=== PATIENT | female | born 1985 | race Two or more races ===

== ENCOUNTER 2018-07-07 23:04 | Inpatient (IN) | payer OTHER ==
[~2018-07-07] VITALS: Ht 170.2 cm; Wt 96.0 kg
--- NOTE | ~2018-07-07 | OR ---
[facility] [address], [place] [address] Draft DATE OF OPERATION: 07/08/2018 SURGEON: Raven Millre DO PREOPERATIVE DIAGNOSES: 1. Term intrauterine . 2. Arrest of descent. POSTOPERATIVE DIAGNOSES: 1. Term intrauterine . 2. Arrest of descent. COUNCILLOR [employer] COUNCIL: Aimee Velazco MD ANESTHESIA: Epidural. ESTIMATED BLOOD LOSS: 500 mL. COMPLICATIONS: None. SPECIMEN: None. FINDINGS: Delivery of viable male , weighing 8 pounds 1 ounces, in the direct OA position with Apgars of 9 and 9 at one and five minutes respectively. Normal tubes, ovaries, and uterus. INDICATIONS: Ms. Lam is a pleasant 32-year-old, G1, P0, white female, who presented to Labor and Delivery for labor. Her labor progressed without complication until 10 cm. The patient then pushed for approximately 2.5 hours. There was some concern that the baby was direct OP positioning, however, baby tolerated pushing well with reassuring heart tracing. The vertex made little to no descensus after 2.5 hours and decision was made to proceed with primary low transverse delivery. Risks, benefits, and alternatives were discussed in detail with the patient. The patient understands and PATIENT NAME: WERO LAM OPERATIVE REPORT DATE OF : 85 REPORT #: [id number] PHYSICIAN: RAVEN MILLER DO PCP: RAVEN MILLER DO REPORT IS CONFIDENTIAL AND NOT TO BE RELEASED WITHOUT AUTHORIZATION [facility] [address], [place] [address] Draft wishes to proceed with the procedure. TECHNIQUE: The patient was taken to the operating room where a time-out was performed to confirm correct patient and correct procedure. Epidural had been in place and this was bolused and was adequate for anesthesia. The patient was prepped and draped in the supine position with a bump in her right hip. ICPs were on and running and patient received Ancef 2 g preoperatively per skip protocol. A vaginal and abdominal prep was performed. Epidural was tested for adequate anesthesia and this was confirmed. A Pfannenstiel skin incision was made through the skin and carried down through the subcu into the fascia. The fascia was nicked in the midline and fascial incision was extended bilaterally using curved Garza scissors. Fascia was grasped with Larry's, elevated, and the underlying rectus muscle dissected off bluntly and sharply. The rectus muscles were divided in the midline and the peritoneum was then entered sharply and peritoneal incision was extended cephalad caudad using blunt dissection. Surgeon's hand was placed into the maternal abdomen. Normal uterus, abdomen, and pelvis were palpated. An Basilio self retractor was placed and lower uterine segment identified. Hysterotomy was performed in lower uterine segment and clear amniotic fluid was noted. The hysterotomy was extended bilaterally using blunt dissection and the head was elevated in the abdomen, delivered with the assistance of fundal pressure. The was noted to be in the direct OA position. No nuchal cord was identified and the delivered easily. The was vigorous and cried at delivery. The cord was doubly clamped and cut and the handed to the waiting pediatric team for further care. Cord blood was obtained for routine analysis and section of cord was retained. Placenta was then expressed intact with a centrally inserted three-vessel cord. The uterus was cleared of any remaining products of conception or clot and good uterine tone was noted. Hysterotomy was repaired using 0 Vicryl in a running locked manner with 0 Vicryl suture. A second vertical imbricating stitch of 0 Vicryl was applied with good hemostasis appreciated. The pelvis was irrigated and again found to be hemostatic. The Basilio retractor was removed and the lower uterine segment again identified and found to be hemostatic. The adnexa were examined. The patient had normal uterus and tubes bilaterally. ACell sheet was applied to the lower uterine segment over the hysterotomy. Peritoneum was then reapproximated using 2-0 Vicryl in a running nonlocked manner. Rectus muscles were examined and found to be hemostatic and these were loosely reapproximated using 0 Vicryl in three interrupted sutures of 0 Vicryl. ACell powder was applied to the rectus sheath. Fascia was then reapproximated using 0 Vicryl in a running nonlocked manner. Subcu was evaluated and found to be hemostatic after irrigation. Subcu was then reapproximated using 2-0 Vicryl in a running nonlocked manner and skin was reapproximated using surgical chanel. The uterus was Crede'd for scant amount of blood and the patient was taken to PACU in good and stable condition with her . PATIENT NAME: WERO LAM OPERATIVE REPORT DATE OF : 85 REPORT #: [id number] PHYSICIAN: RAVEN MILLER DO PCP: RAVEN MILLER DO REPORT IS CONFIDENTIAL AND NOT TO BE RELEASED WITHOUT AUTHORIZATION [address] [address] Draft Sponge, needle, and instrument counts were correct x2 at the end of the procedure. Dr. Velazco was present, participated in all portions of the procedure. Raven Miller DO JDW/MODL /[id number] Copies: ~ PATIENT NAME: WERO LAM OPERATIVE REPORT DATE OF : 85 REPORT #: [id number] PHYSICIAN: RAVEN MILLER DO PCP: RAVEN MILLER DO REPORT IS CONFIDENTIAL AND NOT TO BE RELEASED WITHOUT AUTHORIZATION
--- NOTE | 2018-07-08 07:07 | PR ---
[facility] [address] [place], [place] [address] Signed Progress Notes IP Datetime Report Generated by CPMirna: 07/08/2018 07:07 PROGRESS NOTES: [id number] Impression: Normal progression of labor; Reassuring heart rate Procedures: Artificial ROM; Sterile Vag Exam Plan: Anticipate Vaginal Delivery Informed Consent Obtain: Vaginal Delivery Other Informed Consents: AROM VITAL SIGNS: [id number] Vital Signs: Reviewed; Within Normal Limits EXAM: [id number] Dilatation: 8.5 Effacement: 100 Station: -1 Uterine Contractions: q2-3 m MEMBRANES: [id number] Membrane Status: Intact ROM Note: Discussed AROM w/ pt including risks/benefits. vertex well applied to cervix. After obtaining verbal consent, AROM performed without difficulty for small amount of clear fluid. Mother and fetus tolerated well. Comments: Pt seen and examined. Doing well. Had been very comfortable w/ epidural, but beginning to become quite uncomfortable. Membranes still intact and pt 8.5cm and completely effaced. Discussed AROM and pt agrees; AROM performed without difficulty as above. Will have anesthesia evaluate for possible re-bolus. Reviewed anticipated course of remainder or labor. All questions answered Fetus A: [id number] FHR Baseline: 130 Variability: Moderate 6-25bpm Accelerations: 15X15 Decelerations: None FHR Category: Category I Presentation: Vertex Other Presentation: GLADYS Comments on Fetus A: No evidence of metabolic acidosis Fetus B: [id number] Signing Physician: Raven Miller DO Copies: *Electronically Signed* 07/08/18706 RAVEN MILLER DO PATIENT NAME: WERO LAM PROGRESS NOTE DATE OF : 85 PHYSICIAN: RAVEN MILLER DO RPT #: [id number] REPORT IS CONFIDENTIAL AND NOT TO BE RELEASED WITHOUT AUTHORIZATION [facility] [address] [place] [address] Signed ~ *Electronically Signed* 07/08/18706 RAVEN MILLER DO PATIENT NAME: WERO LAM PROGRESS NOTE DATE OF : 85 PHYSICIAN: RAVEN MILLER DO RPT #: [id number] REPORT IS CONFIDENTIAL AND NOT TO BE RELEASED WITHOUT AUTHORIZATION
--- NOTE | 2018-07-08 09:24 | PR ---
[facility] [address] [place], [place] [address] Signed Progress Notes IP Datetime Report Generated by CPMirna: 07/08/2018 09:24 PROGRESS NOTES: [id number] Impression: Normal progression of labor; Reassuring heart rate Procedures: Artificial ROM; Sterile Vag Exam Plan: Continue present management; Anticipate Vaginal Delivery Informed Consent Obtain: Vaginal Delivery Other Informed Consents: AROM VITAL SIGNS: [id number] Vital Signs: Reviewed; Within Normal Limits EXAM: [id number] Dilatation: 10.0 Effacement: 100 Station: 0 Uterine Contractions: Q 2-3 m MEMBRANES: [id number] Membrane Status: Intact ROM Note: Discussed AROM w/ pt including risks/benefits. vertex well applied to cervix. After obtaining verbal consent, AROM performed without difficulty for small amount of clear fluid. Mother and fetus tolerated well. Comments: Pt seen and evaluated. Will begin pushing w/ RN in the near future. Reviewed 2nd stage of labor. All questions answered. Fetus A: [id number] FHR Baseline: 135 Variability: Moderate 6-25bpm Accelerations: 15X15 Decelerations: None FHR Category: Category I Presentation: Vertex Other Presentation: GLADYS Comments on Fetus A: No evidence of metabolic acidosis Fetus B: [id number] Signing Physician: Raven Miller DO Copies: ~ *Electronically Signed* 07/08/18 0924 RAVEN MILLER DO PATIENT NAME: WERO LAM PROGRESS NOTE DATE OF : 85 PHYSICIAN: RAVEN MILLER DO [facility] #: [id number] REPORT IS CONFIDENTIAL AND NOT TO BE RELEASED WITHOUT AUTHORIZATION
--- NOTE | 2018-07-08 10:10 | PR ---
[facility] [address] [place], [place] [address] Signed Progress Notes IP Datetime Report Generated by CHARISSA: 07/08/2018 10:09 PROGRESS NOTES: [id number] Impression: Normal progression of labor; Reassuring heart rate Procedures: Sterile Vag Exam Plan: Continue present management; Anticipate Vaginal Delivery Informed Consent Obtain: Vaginal Delivery Other Informed Consents: AROM VITAL SIGNS: [id number] Vital Signs: Reviewed VS Notable Details: BP's elevated w/ pushing. No ANDREWS, RUQ pain, or visual changes. Will monitor EXAM: [id number] Dilatation: 10.0 Effacement: 100 Station: 0 Uterine Contractions: q 1-2 min MEMBRANES: [id number] Membrane Status: Intact ROM Note: Discussed AROM w/ pt including risks/benefits. vertex well applied to cervix. After obtaining verbal consent, AROM performed without difficulty for small amount of clear fluid. Mother and fetus tolerated well. Comments: Pt seen and examined. Doing well. Uncomfortable w/ ctxs. Pushing well w/ ctxs. Anterior lip that is easily reducible. Baby tolerating pushing well. Elevated BPs, but no ANDREWS, RUQ pain, or visual changes. Will continue to monitor. Anticipate soon Fetus A: [id number] FHR Baseline: 125 Variability: Moderate 6-25bpm Accelerations: 15X15 Decelerations: None FHR Category: Category I Presentation: Vertex Other Presentation: MORRIS Comments on Fetus A: No evidence of metabolic acidosis Fetus B: [id number] Signing Physician: Raven Miller DO *Electronically Signed* 07/08/18 1009 MILLER,RAVEN Pitts DO PATIENT NAME: WERO LAM PROGRESS NOTE DATE OF : 85 PHYSICIAN: RAVEN MILLER DO RPT #: [id number] REPORT IS CONFIDENTIAL AND NOT TO BE RELEASED WITHOUT AUTHORIZATION [facility] [address] [place] [address] Signed Copies: ~ *Electronically Signed* 07/08/18 [facility] MILLER,RAVEN Pitts DO PATIENT NAME: WERO LAM PROGRESS NOTE DATE OF : 85 PHYSICIAN: RAVEN MILLER DO RPT #: [id number] REPORT IS CONFIDENTIAL AND NOT TO BE RELEASED WITHOUT AUTHORIZATION
--- NOTE | 2018-07-08 11:10 | PR ---
[facility] [address] [place], [place] [address] Signed Progress Notes IP Datetime Report Generated by CHARISSA: 07/08/2018 11:10 PROGRESS NOTES: [id number] Impression: Normal progression of labor; Reassuring heart rate Procedures: Sterile Vag Exam Plan: Continue present management; Anticipate Vaginal Delivery Informed Consent Obtain: Vaginal Delivery Other Informed Consents: AROM VITAL SIGNS: [id number] Vital Signs: Reviewed VS Notable Details: Sustained elevated BP; no ANDREWS, RUQ pain, or visual changes. EXAM: [id number] Dilatation: 10.0 Effacement: 100 Station: 1 Uterine Contractions: q2 minutes MEMBRANES: [id number] Membrane Status: Intact ROM Note: Discussed AROM w/ pt including risks/benefits. vertex well applied to cervix. After obtaining verbal consent, AROM performed without difficulty for small amount of clear fluid. Mother and fetus tolerated well. Comments: Pt seen and examined. Pushing well with contractions and making progress w/ each push. Pushing effort is good. Pt w/ sustained severe range BP. This is likely due to exertion w/ pushing, but will treat with labetalol 20mg IV x 1 dose. Will continue to monitor BPs and will initate additional testing / treatment if needed. Fetus A: [id number] FHR Baseline: 120 Variability: Moderate 6-25bpm Accelerations: 15X15 Decelerations: None FHR Category: Category I Presentation: Vertex Other Presentation: MORRIS Comments on Fetus A: No evidence of metabolic acidosis Fetus B: [id number] Signing Physician: Raven Miller DO *Electronically Signed* 07/08/18 1110 MILLER,RAVEN Pitts DO PATIENT NAME: WERO LAM PROGRESS NOTE DATE OF : 85 PHYSICIAN: RAVEN MILLER DO RPT #: [id number] REPORT IS CONFIDENTIAL AND NOT TO BE RELEASED WITHOUT AUTHORIZATION [facility] [address] [place] [address] Signed Copies: ~ *Electronically Signed* 07/08/181109 MILLER,RAVEN Pitts DO PATIENT NAME: WERO LAM PROGRESS NOTE DATE OF : 85 PHYSICIAN: RAVEN MILLER DO RPT #: [id number] REPORT IS CONFIDENTIAL AND NOT TO BE RELEASED WITHOUT AUTHORIZATION
--- NOTE | 2018-07-08 12:19 | PR ---
[facility] [address] [place], [place] [address] Signed Progress Notes IP Datetime Report Generated by CHARISSA: 07/08/2018 12:19 PROGRESS NOTES: [id number] Impression: Arrest of dilatation/descent; Reassuring heart rate Procedures: Sterile Vag Exam Plan: Continue present management; Anticipate Vaginal Delivery Informed Consent Obtain: Vaginal Delivery; Section Delivery; Vacuum/Forceps Assist Other Informed Consents: AROM VITAL SIGNS: [id number] Vital Signs: Reviewed VS Notable Details: BPs improved w/ labetalol 20mg IV x 1 EXAM: [id number] Dilatation: 10.0 Effacement: 100 Station: 1 Uterine Contractions: q2 minutes MEMBRANES: [id number] Membrane Status: Intact ROM Note: Discussed AROM w/ pt including risks/benefits. vertex well applied to cervix. After obtaining verbal consent, AROM performed without difficulty for small amount of clear fluid. Mother and fetus tolerated well. Comments: Pt continues to push with excellent effort with contractions. vertex now direct OP. Have been pushing with good effort for over 2 hrs. Little to no descent noted recently. Fetus tolerating pushing well with reassuring tracing. Discussed options for management, including continued pushing efforts vs . station too high for operative vaginal delivery. Pt will continue pushing and if significant progress noted, will continue. If not will recommend primary LTCS. Pt and understand. Fetus A: [id number] FHR Baseline: 120 Variability: Moderate 6-25bpm Accelerations: 15X15 Decelerations: None FHR Category: Category I Presentation: Vertex Other Presentation: OP Comments on Fetus A: No evidence of metabolic acidosis Fetus B: [id number] *Electronically Signed* 07/08/181218 RAVEN MILLER DO PATIENT NAME: WERO LAM PROGRESS NOTE DATE OF : 85 PHYSICIAN: RAVEN MILLER DO RPT #: [id number] REPORT IS CONFIDENTIAL AND NOT TO BE RELEASED WITHOUT AUTHORIZATION [address] [place] [address] Signed Signing Physician: Raven Miller DO Copies: ~ *Electronically Signed* 07/08/181218 RAVEN MILLER DO PATIENT NAME: WERO LAM PROGRESS NOTE DATE OF : 85 PHYSICIAN: RAVEN MILLER DO RPT #: [id number] REPORT IS CONFIDENTIAL AND NOT TO BE RELEASED WITHOUT AUTHORIZATION
--- NOTE | 2018-07-08 12:43 | PR ---
[facility] [address] [place], [place] [address] Signed Progress Notes IP Datetime Report Generated by CHARISSA: 07/08/2018 12:43 PROGRESS NOTES: [id number] Impression: Arrest of dilatation/descent; Reassuring heart rate Procedures: Sterile Vag Exam Plan: Deliver- Section Informed Consent Obtain: Section Delivery Other Informed Consents: AROM VITAL SIGNS: [id number] Vital Signs: Reviewed; Within Normal Limits VS Notable Details: BPs improved w/ labetalol 20mg IV x 1 EXAM: [id number] Dilatation: 10.0 Effacement: 100 Station: 1 Uterine Contractions: q 2 min MEMBRANES: [id number] Membrane Status: Intact ROM Note: Discussed AROM w/ pt including risks/benefits. vertex well applied to cervix. After obtaining verbal consent, AROM performed without difficulty for small amount of clear fluid. Mother and fetus tolerated well. Comments: Pt seen and examined. No progress noted. Discussed options for continued pushing effort vs primary C/S, but concerned since no progess has been noted. Pt and agree to primary LTCS. Reviewed risks, benefits, and alternatives in detail w/ pt. Risks include but are not limited to bleeding, infection, injury to surrounding tissue, or difficult extraction. All questions answered Fetus A: [id number] FHR Baseline: 120 Variability: Moderate 6-25bpm Accelerations: 15X15 Decelerations: None FHR Category: Category I Presentation: Vertex Other Presentation: OP Comments on Fetus A: No evidence of metabolic acidosis Fetus B: [id number] Signing Physician: Raven Miller DO *Electronically Signed* 07/08/18 124 RAVEN MILLER DO PATIENT NAME: WERO LAM PROGRESS NOTE DATE OF : 85 PHYSICIAN: RAVEN MILLER DO RPT #: [id number] REPORT IS CONFIDENTIAL AND NOT TO BE RELEASED WITHOUT AUTHORIZATION [place] [address] [place] [address] Signed Copies: ~ *Electronically Signed* 07/08/181242 RAVEN MILLER DO PATIENT NAME: WERO LAM PROGRESS NOTE DATE OF : 85 PHYSICIAN: RAVEN MILLER DO RPT #: [id number] REPORT IS CONFIDENTIAL AND NOT TO BE RELEASED WITHOUT AUTHORIZATION
--- NOTE | 2018-07-08 14:16 | NUR ---
07/08/18 1416 Areli Hernandez 1357 PATIENT ARRIVES TO ROOM 105 VIA BED. RESP EVEN AND UNLABORED. ELECTRONIC SCIENCE TEACHER HAS PATIENT HOB ELEVATED TO 45 DEGREES TO CONTROL SPINAL LEVEL. 1400 PATIENT IS AWAKE AND DENIES PAIN OR NAUSEA. VERY SHAKEY, UNABLE TO GET BP. 1405 PATIENT DENIES DIZZINESS OR NAUSEA, BUT CONTINUES TO BE VERY SHAKEY. BP OBTAINED ON RIGHT LOWER LEG. ELECTRONIC SCIENCE TEACHER AWARE AND OKAY WITH BP ON LEG. 1410 BABY SKIN TO SKIN WITH MOM. ATTEMPTING BREAST FEEDING TO LEFT BREAST. PATIENT HAS NO COMPLAINTS.
--- NOTE | 2018-07-09 07:33 | PR ---
[facility] [address] [facility] [place], [place] [address] Signed PP Progress Notes Datetime Report Generated by CPN: 07/09/2018 07:33 SUBJECTIVE: [id number] Pain: Within normal limits Nausea/Vomiting: Denies Flatus: Yes Bowel Movement: Yes Vital Signs: [id number] Vital Signs: Reviewed Notable Details: Normal BPs overnight EXAM: [id number] Cardiovascular: Normal Respiratory: Normal Abdomen/Uterus: Normal Lochia: Normal Vulva/Perineum: Not Done Breasts: Not Done CVA Tenderness: Normal Extremities: Normal Incision: Normal Progress: Normal Exam Comments: Fundus firm U-2 nontender. Incision healing well. IMPRESSION/PLAN/PROCEDURES: [id number] Impression: Normal progression Plan: Continue present management Progress Notes: Pt seen and examined. Doing well. Ambulated and tolerating full diet. Rosales cath in place. Signing Physician: Raven Miller DO Copies: ~ *Electronically Signed* 07/09/18 0733 RAVEN MILLER DO PATIENT NAME: RE CURRIETremaine MELÉNDEZ PROGRESS NOTE DATE OF : 85 PHYSICIAN: RAVEN MILLER DO RPT #: [id number] REPORT IS CONFIDENTIAL AND NOT TO BE RELEASED WITHOUT AUTHORIZATION
--- NOTE | 2018-07-10 12:08 | PR ---
[facility] [address] [place], [place] [address] Signed PP Progress Notes Datetime Report Generated by CPN: 07/10/2018 12:08 SUBJECTIVE: [id number] Pain: Within normal limits Nausea/Vomiting: Denies Flatus: Yes Bowel Movement: No Vital Signs: [id number] Vital Signs: Reviewed Notable Details: Few elevated BPs EXAM: [id number] Cardiovascular: Normal Respiratory: Normal Abdomen/Uterus: Normal Lochia: Normal Vulva/Perineum: Not Done Breasts: Not Done CVA Tenderness: Normal Extremities: Normal Incision: Normal Progress: Normal Exam Comments: Fundus firm U-2 nontender. Incision well healing IMPRESSION/PLAN/PROCEDURES: [id number] Impression: Normal progression Plan: Remove chanel; Discharge Progress Notes: Pt seen and examined. Doing well. Ambulating, voiding, and tolerating full diet. Pain and lochia minimal. well. No fevers/chills/lightheadedness. Few elevated BPs' but no ANDREWS, RUQ pain, or visual changes. Plan d/c home today. F/U in office in 2 days for BP check. All questions answered Signing Physician: Raven Miller DO Copies: ~ *Electronically Signed* 07/10/18 4000 RAVEN MILLER DO PATIENT NAME: WEOR LAM PROGRESS NOTE DATE OF : 85 PHYSICIAN: RAVEN MILLER DO RPT #: [id number] REPORT IS CONFIDENTIAL AND NOT TO BE RELEASED WITHOUT AUTHORIZATION
== END 2018-07-10 14:15 | disposition home or self-care (01) | DRG 788 ==
LOC: FBCO 23:04 → FBC 23:05
PROVIDERS: ADMIT Obstetrics & Gynecology
PROC: 10907ZC Drainage of Amniotic Fluid, Therapeutic from Products of Conception, Via Natural or Artificial Opening (ICD-10-PCS; 2018-07-08)
PROC: 00HU33Z Insertion of Infusion Device into Spinal Canal, Percutaneous Approach (ICD-10-PCS; 2018-07-08)
PROC: 3E0R3BZ Introduction of Anesthetic Agent into Spinal Canal, Percutaneous Approach (ICD-10-PCS; 2018-07-08)
PROC: 10D00Z1 Extraction of Products of Conception, Low, Open Approach (ICD-10-PCS; principal; 2018-07-08 13:00)
DX: O13.4 Gestational [pregnancy-induced] hypertension without significant proteinuria, complicating childbirth (principal); Z3A.39 39 weeks gestation of pregnancy; Z37.0 Single live birth; O62.1 Secondary uterine inertia; O32.4XX0 Maternal care for high head at term, not applicable or unspecified; O63.1 Prolonged second stage (of labor); O99.324 Drug use complicating childbirth; F12.90 Cannabis use, unspecified, uncomplicated; O99.344 Other mental disorders complicating childbirth; F41.9 Anxiety disorder, unspecified; O26.03 Excessive weight gain in pregnancy, third trimester; O99.89 Other specified diseases and conditions complicating pregnancy, childbirth and the puerperium; R31.29 Other microscopic hematuria
CPT/HCPCS: 01961; 36415; 85027; J0131; J0171; J0330; J0690; J1885; J2270; J2274; J2405; J2590; J2704; J7120